=== PATIENT | male | born 1985 | race Caucasian/White ===

== ENCOUNTER 2023-08-30 08:42 | Emergency (ER) | payer OTHER ==
--- NOTE | 2023-08-30 09:21 | RAD REPORT ---
EXAM DESCRIPTION: RAD - Chest Pa And Lat (2 Views) - 08/30/2023 9:14 am CLINICAL HISTORY: Cough;Congestion Chest pain. COMPARISON: No comparisons FINDINGS: The lungs are clear. The heart is normal in size. No displaced fractures. IMPRESSION: No acute or concerning finding suspected. The USPSTF recommends annual screening for lung cancer with low-dose CT (LDCT) in adults aged 50 to 80 years who have a 20 pack-year smoking history and currently smoke or have quit within the past 15 years.
[2023-08-30 09:44] LABS: SARS-CoV-2 Antigen Rapid Res Negative (Negative)
--- NOTE | 2023-08-30 10:37 | EDPHYS ---
Physician Documentation [facility] Name: Jan Dutta Age: 38 yrs Sex: Male : 1985 Arrival Date: 08/30/2023 Time: 08:42 Bed 11 Private MD: ED Physician Kwaku Felix HPI: 08/30 08:53 This 38 yrs old Male presents to ER via Unassigned with complaints of Flu Symptoms. ms3 08:53 38-year-old male with no past medical history presents emergency department for body ms3 aches, productive cough, fever that began yesterday. Patient states his discomfort is 7/10 and aching. Patient states he took Tylenol at 7 AM. Patient denies any alleviating or inciting factors.. Historical: - Allergies: 08:56 Elavil; hb 08:56 NSAIDS; hb - PSHx: 08:56 Leg - Left; Hand - Left; Knee - Right; Back; hb - Immunization history:: Adult Immunizations up to date. - Social history:: Smoking status: Patient denies any tobacco usage or history of. ROS: 08:53 Neck: Negative for injury, pain, and swelling, Cardiovascular: Negative for chest pain, ms3 and palpitations. 08:53 Constitutional: Positive for body aches, chills, fever, 08:53 Respiratory: Positive for cough, 08:53 All other systems are negative, Exam: 08:53 Constitutional: This is a well developed, well nourished patient who is awake, alert, ms3 and in no acute distress. Head/Face: Normocephalic, atraumatic. Chest/axilla: Normal chest wall appearance and motion. Nontender with no deformity. Respiratory: Lungs have equal breath sounds bilaterally, clear to auscultation and percussion. No rales, rhonchi or wheezes noted. No increased work of breathing, no retractions or nasal flaring. Abdomen/GI: Soft, non-tender, with normal bowel sounds. No distension or tympany. No guarding or rebound. No evidence of tenderness throughout. Skin: Warm, dry with normal turgor. Normal color with no rashes, no lesions, and no evidence of cellulitis. MS/ Extremity: Pulses equal, no cyanosis. Neurovascular intact. Full, normal range of motion. 08:53 Cardiovascular: Rate: tachycardic, Rhythm: regular, Pulses: no pulse deficits are appreciated, Heart sounds: normal, normal S1and S2, Vital Signs: 08:54 BP 145 / 76; Pulse 116; Resp 20; Temp 98.8(TE); Pulse Ox 97% on R/A; Weight 81.65 kg; hb Height 5 ft. 5 in. ; Pain 7/10; 08:54 Body Mass Index 29.95 (81.65 kg, 165.1 cm) hb 08:54 Pain Scale: Adult hb MDM: 08:53 Patient medically screened. ms3 08:53 Differential Diagnosis: Bronchitis Influenza Upper Respiratory Infection Pneumonia. ms3 10:38 Data reviewed: vital signs, nurses notes, and as a result, I will discharge patient. ms3 Independent interpretation of the following test(s) in the Emergency Department X-Ray: My interpretation is CXR images reviewed by me and no focal PNA identified. Counseling: I had a detailed discussion with the patient and/or guardian regarding the historical points, exam findings, and any diagnostic results supporting the discharge/admit diagnosis, lab results, radiology results, the need for outpatient follow up, to return to the emergency department if symptoms worsen or persist or if there are any questions or concerns that arise at home. Special discussion: I discussed with the patient/guardian in detail that at this point there is no indication for admission to the hospital. It is understood, however, that if the symptoms persist or worsen the patient needs to return immediately for re-evaluation. ED course: Discussed labs and chest x-ray findings with patient. Patient to follow-up with primary care physician in 2 to 3 days. Patient understands and agrees with plan. All questions were answered. Return precautions discussed include worsening symptoms, or any other concerns. 08/30 08:53 Order name: Flu; Complete Time: 09:57 ms3 08/30 08:53 Order name: SARS RAPID; Complete Time: :57 ms3 08/30 08:53 Order name: Chest Pa And Lat (2 Views) XRAY; Complete Time: 09:57 ms3 Administered Medications: No medications were administered Disposition Summary: 08/30/23 10:37 Discharge Ordered Notes: Location: Home ms3 Condition: Stable ms3 Diagnosis - Myalgia ms3 - Viral Illness ms3 Followup: ms3 - With: ChildressJakub kelly DO - When: 2 - 3 days - Reason: Recheck today's complaints Discharge Instructions: - Discharge Summary Sheet ms3 - Musculoskeletal Pain ms3 - Viral Illness, Adult ms3 Forms: - Work release form hb - Medication Reconciliation Form ms3 - Thank You Letter ms3 - Antibiotic Education ms3 - Prescription Opioid Use ms3 - Patient Portal Instructions ms3 - Leadership Thank You Letter ms3 Signatures: Dispatcher [employer] Shama Riggs RN RN hb Sims, Marcus, DO DO ms3 Corrections: (The following items were deleted from the chart) 08:57 08:56 Allergies: No Known Allergies; hb hb
--- NOTE | 2023-08-30 10:37 | ER ---
Nurse's Notes [facility] Name: Jan Dutta Age: 38 yrs Sex: Male : 1985 Arrival Date: 08/30/2023 Time: 08:42 Bed 11 Private MD: Diagnosis: Myalgia;Viral Illness Presentation: 08/30 08:54 Chief complaint: Cough, headache, body aches, nausea, and fever x 3 days. Coronavirus hb screen: Client presents with at least one sign or symptom that may indicate coronavirus-19. Standard/surgical mask placed on the client. Provider contacted for isolation considerations. Ebola Screen: No symptoms or risks identified at this time. Initial Sepsis Screen: Does the patient meet any 2 criteria? No. Patient's initial sepsis screen is negative. Does the patient have a suspected source of infection? No. Patient's initial sepsis screen is negative. Risk Assessment: Do you want to hurt yourself or someone else? Patient reports no desire to harm self or others. Onset of symptoms was August 28, 2023. 08:54 Method Of Arrival: Ambulatory hb 08:54 Acuity: GUSTAVO 4 hb Triage Assessment: 08:55 General: Appears in no apparent distress. Behavior is calm, cooperative. Pain: Pain hb currently is 7 out of 10 on a pain scale. EENT: Reports nasal congestion nasal discharge. Neuro: Level of Consciousness is awake, alert, obeys commands, Oriented to person, place, time, situation. Cardiovascular: Patient's skin is warm and dry. Respiratory: Reports cough that is Respiratory effort is even, unlabored, Respiratory pattern is regular, symmetrical. GI: Reports nausea. : No signs and/or symptoms were reported regarding the genitourinary system. Derm: Skin is pink, warm \T\ dry. Musculoskeletal: Reports body aches. Historical: - Allergies: 08:56 Elavil; hb 08:56 NSAIDS; hb - PSHx: 08:56 Leg - Left; Hand - Left; Knee - Right; Back; hb - Immunization history:: Adult Immunizations up to date. - Social history:: Smoking status: Patient denies any tobacco usage or history of. Screenin:00 [facility] ED Fall Risk Assessment (Adult) Score/Fall Risk Level 0 - 2 = Low Risk hb Oriented to surroundings, Maintained a safe environment. Abuse screen: Denies threats or abuse. Denies injuries from another. Nutritional screening: No deficits noted. Tuberculosis screening: No symptoms or risk factors identified. Assessment: 10:45 General: See triage assessment. hb Vital Signs: 08:54 BP 145 / 76; Pulse 116; Resp 20; Temp 98.8(TE); Pulse Ox 97% on R/A; Weight 81.65 kg; hb Height 5 ft. 5 in. ; Pain 7/10; 08:54 Body Mass Index 29.95 (81.65 kg, 165.1 cm) hb 08:54 Pain Scale: Adult hb ED Course: 08:45 Patient arrived in ED. mr 08:45 Kwaku Felix DO is Attending Physician. ms3 08:54 Arm band placed on. hb 08:56 Triage completed. hb 09:16 Chest Pa And Lat (2 Views) XRAY In Process Unspecified. EDMS 09:17 SARS RAPID Sent. hb 09:17 Flu Sent. hb 10:00 No provider procedures requiring assistance completed. Patient did not have IV access hb during this emergency room visit. 10:00 Patient has correct armband on for positive identification. Provided Education on: . hb 10:31 Jakub Childress DO is Referral Physician. ms3 Administered Medications: No medications were administered Medication: 10:45 VIS not applicable for this client. hb Outcome: 10:37 Discharge ordered by . ms3 10:46 Discharged to home ambulatory, hb 10:46 Condition: stable 10:46 Discharge instructions given to patient, Instructed on discharge instructions, follow up and referral plans. medication usage, Demonstrated understanding of instructions, follow-up care, medications, 10:46 Patient left the ED. hb Signatures: Dispatcher [employer] EDMS Rosmery Alvarez, Reg Reg Shama Berrios, RN RN hb Kwaku Felix DO DO ms3 Corrections: (The following items were deleted from the chart) 08:57 08:56 Allergies: No Known Allergies; hb hb
[2023-08-30 11:02] VITALS: BP 145/76; TEMP 98.8; O2SAT 97
== END 2023-08-30 10:46 | disposition home or self-care (01) ==
LOC: ER 08:42
DX: B34.9 Viral infection, unspecified (principal); Z11.52 Encounter for screening for COVID-19; Z88.6 Allergy status to analgesic agent; Z88.8 Allergy status to other drugs, medicaments and biological substances
CPT/HCPCS: 36415; 71046; 87804; 87811; 99283